=== PATIENT | female | born 1975 | race Two or more races ===

== ENCOUNTER 2018-07-20 20:52 | Emergency (ER) | payer OTHER ==
[~2018-07-20] VITALS: Ht 149.9 cm; Wt 56.2 kg
[~2018-07-20 20:52] MED LIST: AMOX1TAB12 PO; MOTRIN800 MG PO
== END 2018-07-20 23:58 | disposition home or self-care (01) ==
LOC: ER 20:52
DX: H92.01 Otalgia, right ear (principal); H61.21 Impacted cerumen, right ear

== ENCOUNTER 2019-09-17 13:44 | Emergency (ER) | payer OTHER ==
[~2019-09-17] VITALS: Ht 149.9 cm; Wt 54.4 kg
[2019-09-17] MEDS ORDERED: DICLOFENAC SODI75 MG PO (14:26)
== END 2019-09-17 14:32 | disposition home or self-care (01) ==
LOC: ER 13:44
DX: M25.511 Pain in right shoulder (principal)

== ENCOUNTER 2022-04-03 18:20 | Emergency (ER) | payer OTHER ==
[~2022-04-03] VITALS: Ht 149.9 cm; Wt 52.2 kg
[~2022-04-03 18:20] MED LIST changes: +DICLOFENAC SODI75 MG PO
[2022-04-03] MEDS ORDERED: TUSNEL LIQUID178 ML PO (22:41)
[2022-04-03] MEDS ORDERED: ZOFRAN8 MG PO (22:41)
[2022-04-03] MEDS ORDERED: ZITHROMAX500 MG PO (22:41)
[2022-04-03] MEDS ORDERED: PROAIR HFA8.5 GM IH (22:41)
== END 2022-04-04 00:09 | disposition home or self-care (01) ==
LOC: ER 18:20
DX: U07.1 COVID-19 (principal)